=== PATIENT | female | born 1955 | race Caucasian/White ===

== ENCOUNTER 2019-10-31 08:06 | Inpatient (IN) | payer BC ==
[~2019-10-31] VITALS: Ht 167.6 cm; Wt 76.4 kg
[~2019-10-31 08:06] MED LIST: CALC-463 PO; LORA-512 PO; LORA0.5T PO; MULT-1085 PO; OMEP20TA23 PO; RED600TA PO
[2019-10-31 08:37] LABS: BASOPHILS # (AUTO) 0.1 X10'3 (0-0.2); BASOPHILS % (AUTO) 0.8 % (0-1); EOSINOPHILS # (AUTO) 0.1 X10'3 (0-0.9); EOSINOPHILS % (AUTO) 1.6 % (0-6); HEMATOCRIT 43.2 % (35.0-45.0); HEMOGLOBIN 14.7 g/dl (12.0-16.0); LYMPHOCYTES # (AUTO) 2.1 X10'3 (1.1-4.8); LYMPHOCYTES % (AUTO) 23.7 % (21-51); MEAN CORPUSCULAR HEMOGLOBIN 31.5 PG (27.0-31.0); MEAN CORPUSCULAR HGB CONC 34.2 g/dL (33.0-36.5); MEAN CORPUSCULAR VOLUME 92.2 FL (78-98); MONOCYTES # (AUTO) 0.8 X10'3 (0-0.9); MONOCYTES % (AUTO) 8.7 % (2-12); NEUTROPHILS # (AUTO) 5.8 X10'3 (1.8-7.7); NEUTROPHILS % (AUTO) 65.2 % (42-75); PLATELET COUNT 351 X10'3 (140-440); RED BLOOD COUNT 4.68 X10'6 (4.20-5.60); RED CELL DISTRIBUTION WIDTH 13.9 % (11.5-14.5); WHITE BLOOD COUNT 8.9 X10'3 (4.5-11.0)
[2019-10-31 08:51] LABS: ALANINE AMINOTRANSFERASE 30 U/L (12-78); ALBUMIN 4.2 G/DL (3.4-5.0); ALBUMIN/GLOBULIN RATIO 1.2 (1.1-1.5); ALKALINE PHOSPHATASE 64 IU/L (46-116); ANION GAP 7 (8-16); ASPARTATE AMINO TRANSFERASE 18 U/L (10-37); BILIRUBIN,TOTAL 0.3 MG/DL (0.1-1.0); BLOOD UREA NITROGEN 14 MG/DL (7-18); BUN/CREATININE RATIO 19.7 (6.6-38.0); CHLORIDE 107 MMOL/L (99-107); CREATININE 0.71 MG/DL (0.40-0.90); GLUCOSE 111 MG/DL (70-104); POTASSIUM 4.2 MMOL/L (3.5-5.1); SODIUM 140 MMOL/L (135-145); TOTAL CARBON DIOXIDE 25.8 MMOL/L (24-32); TOTAL PROTEIN 7.6 G/DL (6.4-8.2); eGFR 83 ML/MIN
[2019-10-31 08:59] LABS: MAGNESIUM 2.3 MG/DL (1.5-2.4)
[2019-10-31 09:17] LABS: PARTIAL THROMBOPLASTIN TIME 21 SECONDS (22-32)
--- NOTE | 2019-10-31 09:49 | NUR ---
Pt standing in doorway, when asked what we could help her with, she stated, "No one has been in to see me for 30 minutes", and started crying. Explained that we were waiting for the labs to get back. Pt started crying even more.
--- NOTE | 2019-10-31 10:06 | NUR ---
Pt ambulated to the restroom without any difficulty. Pt continues to cry, stating, "no one has been in my room for over 40 minutes". Explained that a few of us have been in her room over the past 20 minutes.
--- NOTE | 2019-10-31 10:13 | NUR ---
Pt unable to obtain urine at this time. Pt continues to cry stating, "I can't get anything because I haven't had anything to drink all night."
--- NOTE | 2019-10-31 10:25 | NUR ---
Let pt know that they would be coming to get her for a CT scan shortly. Let he know that we cannot give her any water until we get the CT scan back. Let pt know that her is aware of what is going on as we have talked to him. Pt continues to cry.
[2019-10-31 10:31] LABS: ETHANOL < 0.010 GM/DL (0.0-0.010)
--- NOTE | 2019-10-31 10:45 | NUR ---
Pt's , Evin, can be reached at [phone] (home #).
[2019-10-31] MEDS ORDERED: TETanus/Pertussis (Acell)/Diphther VAC/PF (Tdap-Adult) 0.5ml syringe IMVAC ONE (10:55)
[2019-10-31] MEDS ORDERED: LIDOcaine 1% W/epiNEPHrine 1:200,000 10ml vial IJ ONE (10:55)
[2019-10-31 11:15] LABS: CLARITY,URINE CLEAR (Clear); COLOR,URINE YELLOW (Yellow); GLUCOSE, URINE NEGATIVE (Neg); KETONES,URINE NEGATIVE (Neg); LEUKOCYTE ESTERASE ,URINE NEGATIVE (Neg); NITRITES, URINE NEGATIVE (Neg); OCCULT BLOOD,URINE NEGATIVE (Neg); PROTEIN,URINE NEGATIVE (Neg); UROBILINOGEN,URINE 0.2 E.U/dL (0.2-1.0)
[2019-10-31 11:19] LABS: UA COLLECTION TYPE CLN CATCH MIDSTREAM
[2019-10-31 11:28] LABS: URINE AMPHETAMINE SCREEN NEGATIVE (Neg); URINE BARBITUATE SCREEN NEGATIVE (Neg); URINE BENZODIAZEPINES SCREEN NEGATIVE (Neg); URINE CANNABINOID SCREEN POSITIVE (Neg); URINE COCAINE SCREEN NEGATIVE (Neg); URINE METHADONE SCREEN NEGATIVE (Neg); URINE OPIATE SCREEN NEGATIVE (Neg); URINE PHENCYCLIDINE SCREEN NEGATIVE (Neg)
[2019-10-31] MEDS ORDERED: OMEP20TA23 PO (12:48)
[2019-10-31] MEDS ORDERED: PREVCR VG (12:48)
[2019-10-31] MEDS ORDERED: BUSP10TA3 PO (12:48)
[2019-10-31] MEDS ORDERED: DESV100T16 PO (12:48)
[2019-10-31] MEDS ORDERED: acetaminophen 325mg tablet PO ONE (13:40)
[2019-10-31] MEDS ORDERED: ondansetron/PF 4mg/2ml inj IV PRN (13:45)
[2019-10-31] MEDS ORDERED: acetaminophen 325mg tablet PO PRN ×2 (13:45)
[2019-10-31] MEDS ORDERED: HYDROcodone/acetaminophen 5mg/325mg tablet PO PRN (13:45)
[2019-10-31] MEDS ORDERED: mag hydrox/Alum hydrox/simeth 30ml oral suspension PO PRN (13:45)
[2019-10-31] MEDS ORDERED: morphine 2 MG/ML inj. syringe IV PRN ×2 (13:45)
[2019-10-31] MEDS ORDERED: magnesium hydroxide 30ml (MOM) UD suspension PO PRN (13:45)
[2019-10-31] MEDS ORDERED: pneumococcal 23-VAL P-sac vacc 25 mcg/0.5ml vial IMVAC ONE (14:20)
[2019-10-31] MEDS ORDERED: estrogens, conjug. vaginal cream 45gm tube VG SCH (14:30)
[2019-10-31] MEDS ORDERED: aminophylline 250mg/10ml inj. IV PRN (14:30)
[2019-10-31] MEDS ORDERED: nitroGLYCERIN 0.4mg SUBLingual tab SL PRN (14:30)
[2019-10-31] MEDS ORDERED: regadenoson 0.4mg/5ml syringe IV ONE (14:30)
[2019-10-31] MEDS ORDERED: metoprolol tartrate 1mg/ml inj IV PRN (14:30)
--- NOTE | 2019-10-31 14:35 | NUR ---
report called, echo at bedside, will transfer up when echo is done
--- NOTE | 2019-10-31 16:00 | NUR ---
Addmission wound photos to chart.
--- NOTE | 2019-10-31 18:53 | NUR ---
Patient in room PCU 3027. I have received report from Susie ROCA and had the opportunity to ask questions and assume patient care.
[2019-10-31 19:04] VITALS: BP 138/80
[2019-10-31] MEDS: busPIRone 5mg tablet PO SCH (20:26)
[2019-10-31] MEDS: HYDROcodone/acetaminophen 10/325mg tab PO PRN (20:28)
[2019-10-31] MEDS: venlafaxine 25mg tablet PO SCH (21:00)
[2019-10-31 22:00] VITALS: BP_SYST 101; BP_SYST 111; BP_SYST 128; BP_DIAS 66; BP_DIAS 78; BP_DIAS 89
--- NOTE | 2019-10-31 23:00 | NUR ---
Six and 12 HR Troponins reported to Dr. Vences at 0.17 and 0.25, an elevation from 0 and 3HR results. Pt scheduled f/Angélica Scan in am. Will be NPO at MD, education given to pt w/good understanding.
[2019-11-01] VITALS (13 sets, daily range): BP systolic 117–155; BP diastolic 70–95
[2019-11-01 05:40] LABS: BASOPHILS # (AUTO) 0.1 X10'3 (0-0.2); BASOPHILS % (AUTO) 0.7 % (0-1); EOSINOPHILS # (AUTO) 0.1 X10'3 (0-0.9); EOSINOPHILS % (AUTO) 0.9 % (0-6); HEMATOCRIT 41.3 % (35.0-45.0); HEMOGLOBIN 14.1 g/dl (12.0-16.0); LYMPHOCYTES # (AUTO) 3.1 X10'3 (1.1-4.8); MEAN CORPUSCULAR HEMOGLOBIN 31.1 PG (27.0-31.0); MEAN CORPUSCULAR HGB CONC 34.1 g/dL (33.0-36.5); MEAN CORPUSCULAR VOLUME 91.3 FL (78-98); MEAN PLATELET VOLUME 8.1 FL (7.4-10.4); MONOCYTES # (AUTO) 1.5 X10'3 (0-0.9); MONOCYTES % (AUTO) 12.5 % (2-12); NEUTROPHILS # (AUTO) 7.2 X10'3 (1.8-7.7); NEUTROPHILS % (AUTO) 59.9 % (42-75); PLATELET COUNT 321 X10'3 (140-440); RED BLOOD COUNT 4.53 X10'6 (4.20-5.60); RED CELL DISTRIBUTION WIDTH 13.9 % (11.5-14.5)
[2019-11-01 06:24] LABS: ALBUMIN 3.8 G/DL (3.4-5.0); ANION GAP 9 (8-16); BLOOD UREA NITROGEN 9 MG/DL (7-18); BUN/CREATININE RATIO 13.6 (6.6-38.0); CALCIUM 9.4 MG/DL (8.5-10.1); CHLORIDE 106 MMOL/L (99-107); CHOL/HDL RATIO 5.7 (0.00-4.99); CHOLESTEROL 234 MG/DL (0-200); CREATININE 0.66 MG/DL (0.40-0.90); GLUCOSE 106 MG/DL (70-104); HDL CHOLESTEROL 41 MG/DL (35-60); LDL CHOLESTEROL 159 MG/DL (50-100); POTASSIUM 3.8 MMOL/L (3.5-5.1); SODIUM 140 MMOL/L (135-145); TOTAL CARBON DIOXIDE 24.8 MMOL/L (24-32); TRIGLYCERIDES 226 MG/DL (20-135); eGFR 90 ML/MIN
--- NOTE | 2019-11-01 07:28 | NUR ---
Problems reprioritized. Patient report given, questions answered & plan of care reviewed with Susie ROCA.
--- NOTE | 2019-11-01 10:00 | NUR ---
NPO with scheduled medications on hold prior to procedure.
--- NOTE | 2019-11-01 10:15 | NUR ---
Teaching Nursing: Angélica Scan procedure Test Expectation, Labs, What it shows, what to expect.
[2019-11-01] MEDS: busPIRone 5mg tablet PO SCH ×2 (11:48→20:44)
[2019-11-01] MEDS: pantoprazole 40mg Tablet.DR PO SCH (11:48)
[2019-11-01] MEDS: venlafaxine 25mg tablet PO SCH ×3 (11:48→20:43)
[2019-11-01] MEDS ORDERED: iohexol 350MG/ML 100ml bottle IV ONE (12:16)
[2019-11-01] MEDS ORDERED: acetylcysteine 200 MG/ml 4ml vial PO ONE (15:40)
[2019-11-01] MEDS ORDERED: LIDOcaine/PRILOcaine 5gm cream TP ONE (15:40)
[2019-11-01] MEDS: normal saline 1000ml 1,000 ML IV SCH (16:02)
[2019-11-01] MEDS: aspirin 325mg tablet PO SCH (16:11)
[2019-11-01] MEDS: acetylcysteine 200 MG/ml 4ml vial PO SCH (20:43)
[2019-11-01] MEDS: metoprolol tartrate 12.5mg (1/2 tablet) PO SCH (20:45)
[2019-11-01] MEDS: HYDROcodone/acetaminophen 10/325mg tab PO PRN (20:45)
[2019-11-02] VITALS (13 sets, daily range): BP systolic 110–148; BP diastolic 69–88
[2019-11-02] MEDS: normal saline 1000ml 1,000 ML IV SCH (01:16)
[2019-11-02 05:31] LABS: BASOPHILS # (AUTO) 0.1 X10'3 (0-0.2); BASOPHILS % (AUTO) 0.8 % (0-1); EOSINOPHILS # (AUTO) 0.2 X10'3 (0-0.9); EOSINOPHILS % (AUTO) 1.6 % (0-6); HEMATOCRIT 38.3 % (35.0-45.0); LYMPHOCYTES # (AUTO) 3.5 X10'3 (1.1-4.8); LYMPHOCYTES % (AUTO) 34.7 % (21-51); MEAN CORPUSCULAR HEMOGLOBIN 31.6 PG (27.0-31.0); MEAN CORPUSCULAR HGB CONC 34.1 g/dL (33.0-36.5); MEAN CORPUSCULAR VOLUME 92.7 FL (78-98); MEAN PLATELET VOLUME 8.1 FL (7.4-10.4); MONOCYTES # (AUTO) 1.1 X10'3 (0-0.9); MONOCYTES % (AUTO) 11.2 % (2-12); NEUTROPHILS # (AUTO) 5.2 X10'3 (1.8-7.7); NEUTROPHILS % (AUTO) 51.7 % (42-75); PLATELET COUNT 311 X10'3 (140-440); RED BLOOD COUNT 4.13 X10'6 (4.20-5.60); RED CELL DISTRIBUTION WIDTH 13.9 % (11.5-14.5); WHITE BLOOD COUNT 10.1 X10'3 (4.5-11.0)
[2019-11-02 05:35] LABS: ALBUMIN 3.4 G/DL (3.4-5.0); ANION GAP 6 (8-16); BLOOD UREA NITROGEN 9 MG/DL (7-18); BUN/CREATININE RATIO 14.5 (6.6-38.0); CALCIUM 8.5 MG/DL (8.5-10.1); CHLORIDE 107 MMOL/L (99-107); CREATININE 0.62 MG/DL (0.40-0.90); GLUCOSE 103 MG/DL (70-104); SODIUM 139 MMOL/L (135-145); TOTAL CARBON DIOXIDE 26.4 MMOL/L (24-32); eGFR > 90 ML/MIN
--- NOTE | 2019-11-02 06:00 | NUR ---
Patient in room PCU 3027. I have received report from Anastasiia ROCA and had the opportunity to ask questions and assume patient care.
--- NOTE | 2019-11-02 06:45 | NUR ---
Problems reprioritized. Patient report given, questions answered & plan of care reviewed with Rahel ROCA.
[2019-11-02] MEDS: aspirin 325mg tablet PO SCH (08:51)
[2019-11-02] MEDS: venlafaxine 25mg tablet PO SCH ×3 (08:51→20:49)
[2019-11-02] MEDS: busPIRone 5mg tablet PO SCH ×2 (08:51→20:49)
[2019-11-02] MEDS: atorvastatin 20mg tablet PO SCH (08:51)
[2019-11-02] MEDS: acetylcysteine 200 MG/ml 4ml vial PO SCH ×2 (08:52→20:50)
[2019-11-02] MEDS: pantoprazole 40mg Tablet.DR PO SCH (08:53)
[2019-11-02] MEDS: metoprolol tartrate 12.5mg (1/2 tablet) PO SCH ×2 (08:57→20:49)
[2019-11-02] MEDS ORDERED: LIDOcaine/PRILOcaine 5gm cream TP ONE (10:00)
[2019-11-02] MEDS ORDERED: nitroGLYCERIN-Tridil 50MG/D5W 250 ML IV ONE (10:14)
[2019-11-02] MEDS ORDERED: iohexol 350MG/ML 100ml bottle IV ONE ×4 (10:15→12:06)
[2019-11-02] MEDS ORDERED: iohexol 350 MG/ML 50ML vial IV ONE (10:15)
[2019-11-02] MEDS ORDERED: heparin 1,000unit/ml 10ml vial 10 ML ONE (10:15)
[2019-11-02] MEDS ORDERED: midazolam 2 mg/2 ml injection ONE (10:15)
[2019-11-02] MEDS ORDERED: verapamil 2.5 mg/ml inj IV ONE (10:15)
[2019-11-02] MEDS ORDERED: fentaNYL/PF 50MCG/1 ML 2ML syringe ONE (10:15)
[2019-11-02] MEDS ORDERED: LIDOcaine 1% (10mg/ml)w/preservative injection 20ml MDV ONE (10:15)
[2019-11-02] MEDS ORDERED: heparin 25,000 UNIT/250ml bag 250 ML IV ONE (11:17)
[2019-11-02] MEDS ORDERED: clopidogrel 300mg tablet ONE (12:27)
[2019-11-02] MEDS ORDERED: tirofiban 5mg in NS 100mL 100 ML IV ONE (12:31)
[2019-11-02] MEDS ORDERED: heparin 25,000 UNIT/250ml bag 250 ML IV SCH (13:29)
[2019-11-02] MEDS ORDERED: normal saline 1000ml 1,000 ML IV SCH (13:55)
[2019-11-02] MEDS ORDERED: normal saline 1000ml 1,000 ML IV ONE (13:55)
[2019-11-02] MEDS: tirofiban 5mg in NS 100mL 100 ML IV SCH ×2 (14:58→20:50)
--- NOTE | 2019-11-02 18:00 | NUR ---
Problems reprioritized. Patient report given, questions answered & plan of care reviewed with Zuleika ROCA.
--- NOTE | 2019-11-02 18:46 | NUR ---
Patient in room PCU 3027. I have received report from Jeanna ROCA and had the opportunity to ask questions and assume patient care.
--- NOTE | 2019-11-02 19:00 | NUR ---
Hemostatic wrist band removed from right radial cath site. No bleeding or bruising noted. Band aide placed on site. Will continue to monitor.
--- NOTE | 2019-11-02 19:07 | NUR ---
Clarified with Dr. Deras to hang one more bottle of Aggrastat and then to stop.
[2019-11-03 02:00] VITALS: BP 118/70
[2019-11-03 05:26] LABS: BASOPHILS # (AUTO) 0.1 X10'3 (0-0.2); BASOPHILS % (AUTO) 0.8 % (0-1); EOSINOPHILS # (AUTO) 0.1 X10'3 (0-0.9); EOSINOPHILS % (AUTO) 0.5 % (0-6); HEMATOCRIT 37.4 % (35.0-45.0); HEMOGLOBIN 12.7 g/dl (12.0-16.0); LYMPHOCYTES # (AUTO) 2.8 X10'3 (1.1-4.8); LYMPHOCYTES % (AUTO) 24.9 % (21-51); MEAN CORPUSCULAR HEMOGLOBIN 31.1 PG (27.0-31.0); MEAN CORPUSCULAR HGB CONC 33.9 g/dL (33.0-36.5); MEAN CORPUSCULAR VOLUME 91.6 FL (78-98); MEAN PLATELET VOLUME 8.6 FL (7.4-10.4); MONOCYTES # (AUTO) 1.1 X10'3 (0-0.9); MONOCYTES % (AUTO) 9.6 % (2-12); NEUTROPHILS # (AUTO) 7.2 X10'3 (1.8-7.7); NEUTROPHILS % (AUTO) 64.2 % (42-75); PLATELET COUNT 307 X10'3 (140-440); RED BLOOD COUNT 4.08 X10'6 (4.20-5.60); RED CELL DISTRIBUTION WIDTH 13.5 % (11.5-14.5); WHITE BLOOD COUNT 11.2 X10'3 (4.5-11.0)
[2019-11-03 05:42] LABS: ALBUMIN 3.4 G/DL (3.4-5.0); ANION GAP 10 (8-16); BLOOD UREA NITROGEN 4 MG/DL (7-18); BUN/CREATININE RATIO 7.7 (6.6-38.0); CALCIUM 8.7 MG/DL (8.5-10.1); CHLORIDE 103 MMOL/L (99-107); CREATININE 0.52 MG/DL (0.40-0.90); GLUCOSE 102 MG/DL (70-104); POTASSIUM 3.2 MMOL/L (3.5-5.1); SODIUM 138 MMOL/L (135-145); TOTAL CARBON DIOXIDE 25.3 MMOL/L (24-32); eGFR > 90 ML/MIN
--- NOTE | 2019-11-03 06:21 | NUR ---
Problems reprioritized. Patient report given, questions answered & plan of care reviewed with Jeanna ROCA.
[2019-11-03 07:00] VITALS: BP 115/60
[2019-11-03] MEDS ORDERED: clopidogrel 75mg tablet PO SCH (08:00)
[2019-11-03] MEDS: pantoprazole 40mg Tablet.DR PO SCH (08:26)
[2019-11-03 08:27] VITALS: BP_SYST 115
[2019-11-03] MEDS: busPIRone 5mg tablet PO SCH (08:27)
[2019-11-03] MEDS: atorvastatin 20mg tablet PO SCH (08:27)
[2019-11-03] MEDS: aspirin 325mg tablet PO SCH (08:27)
[2019-11-03] MEDS: venlafaxine 25mg tablet PO SCH (08:27)
[2019-11-03] MEDS: metoprolol tartrate 12.5mg (1/2 tablet) PO SCH (08:27)
[2019-11-03] MEDS ORDERED: METO25TA6 PO (09:01)
[2019-11-03] MEDS ORDERED: ATOR20TA66 PO (09:01)
[2019-11-03] MEDS ORDERED: ASPI-1 PO (09:01)
[2019-11-03] MEDS ORDERED: CLOP75TA35 PO (09:01)
--- NOTE | 2019-11-03 09:45 | NUR ---
Wound pictures were taken yesterday 11/01 at 5pm Addendum: 11/03/19 at 0946 by Lakeshia Ahmadi RN Amended: Links added.
--- NOTE | 2019-11-03 11:22 | NUR ---
Patient was d/c to home at 1045. PIV was removed with cannula intact. RX were called into [facility] on [address]. D/C insructions were reviewed and she verbalized understanding. She was picked up by her
[2019-11-03] MEDS ORDERED: lisinopril 5mg tablet PO SCH (21:00)
== END 2019-11-03 10:45 | disposition home or self-care (01) | DRG 247 ==
LOC: ER 08:06 → ED HOLD 13:42 → PCU 3S 14:58 → OBSVTOIN 11-01 10:00
PROVIDERS: ADMIT Internal Medicine; ATTEND Internal Medicine
PROC: 3E0234Z Introduction of Serum, Toxoid and Vaccine into Muscle, Percutaneous Approach (ICD-10-PCS; principal; 2019-10-31)
PROC: 0CQ1XZZ Repair Lower Lip, External Approach (ICD-10-PCS; 2019-10-31)
PROC: 0CQ0XZZ Repair Upper Lip, External Approach (ICD-10-PCS; 2019-10-31)
PROC: 4A10X4Z Monitoring of Central Nervous Electrical Activity, External Approach (ICD-10-PCS; 2019-10-31)
PROC: 4A02XM4 Measurement of Cardiac Total Activity, External Approach (ICD-10-PCS; 2019-11-01)
PROC: 3E073KZ Introduction of Other Diagnostic Substance into Coronary Artery, Percutaneous Approach (ICD-10-PCS; 2019-11-01)
PROC: B32T1ZZ Computerized Tomography (CT Scan) of Left Pulmonary Artery using Low Osmolar Contrast (ICD-10-PCS; 2019-11-01)
PROC: B3201ZZ Computerized Tomography (CT Scan) of Thoracic Aorta using Low Osmolar Contrast (ICD-10-PCS; 2019-11-01)
PROC: B32S1ZZ Computerized Tomography (CT Scan) of Right Pulmonary Artery using Low Osmolar Contrast (ICD-10-PCS; 2019-11-01)
PROC: 027034Z Dilation of Coronary Artery, One Artery with Drug-eluting Intraluminal Device, Percutaneous Approach (ICD-10-PCS; 2019-11-02)
PROC: 02703ZZ Dilation of Coronary Artery, One Artery, Percutaneous Approach (ICD-10-PCS; 2019-11-02)
PROC: 4A023N7 Measurement of Cardiac Sampling and Pressure, Left Heart, Percutaneous Approach (ICD-10-PCS; 2019-11-02)
PROC: B2111ZZ Fluoroscopy of Multiple Coronary Arteries using Low Osmolar Contrast (ICD-10-PCS; 2019-11-02)
PROC: B2151ZZ Fluoroscopy of Left Heart using Low Osmolar Contrast (ICD-10-PCS; 2019-11-02)
DX: I21.4 Non-ST elevation (NSTEMI) myocardial infarction (principal); E78.5 Hyperlipidemia, unspecified; F10.21 Alcohol dependence, in remission; F12.90 Cannabis use, unspecified, uncomplicated; I34.0 Nonrheumatic mitral (valve) insufficiency; I65.23 Occlusion and stenosis of bilateral carotid arteries; K21.9 Gastro-esophageal reflux disease without esophagitis; W18.39XA Other fall on same level, initial encounter; F32.9 Major depressive disorder, single episode, unspecified; F41.9 Anxiety disorder, unspecified; S01.511A Laceration without foreign body of lip, initial encounter; Z79.02 Long term (current) use of antithrombotics/antiplatelets; Z87.891 Personal history of nicotine dependence; Z90.710 Acquired absence of both cervix and uterus; Z90.81 Acquired absence of spleen; Z23 Encounter for immunization; Y93.89 Activity, other specified; Y92.098 Other place in other non-institutional residence as the place of occurrence of the external cause; Y99.8 Other external cause status; Z91.040 Latex allergy status; Z98.51 Tubal ligation status; Z79.899 Other long term (current) drug therapy
CPT/HCPCS: 92921; 93306; 93458; C9600; 12013; 36415; 70450; 71045; 71275; 78452; 80048; 80053; 80061; 80305; 80320; 81003; 83735; 83880; 84484; 85025; 85610; 85730; 87081; 90471; 90715; 90732; 93005; 93017; 93880; 95816; 96374; 99152; 99153; 99285; A4620; A9500; C1725; C1751; C1769; C1874; C1894; G0378; J1644; J2001; J2250; J2405; J2785; J3010; J3246; J3490; J7030; Q9967

== ENCOUNTER 2020-01-20 09:39 | Outpatient (CLI) | payer BC ==
[2020-01-20] VITALS (22 sets, daily range): BP systolic 72–185; BP diastolic 50–103
[~2020-01-20 09:39] MED LIST changes: +ASPI-1 PO; +ATOR20TA66 PO; +BUSP10TA3 PO; -CALC-463 PO; +CLOP75TA35 PO; +DESV100T16 PO; -LORA-512 PO; -LORA0.5T PO; +METO25TA6 PO; -MULT-1085 PO; +PREVCR VG; -RED600TA PO
== END 2020-01-20 23:59 | disposition home or self-care (01) ==
LOC: CARD DIAG 09:39
PROVIDERS: ATTEND Internal Medicine Cardiovascular Disease
DX: R55 Syncope and collapse (principal); R42 Dizziness and giddiness
CPT/HCPCS: 93660